=== PATIENT | male | born 1975 ===

== ENCOUNTER 2020-03-02 02:58 | Inpatient (IN) | payer OTHER ==
[2020-03-02] MEDS ORDERED: ACETAMINOPHEN 325 MG TAB PO ONE (03:05)
[2020-03-02] MEDS ORDERED: SODIUM CHLORIDE 0.9% 1000 ML 1,000 ML IV ONE ×2 (03:59→05:23)
[2020-03-02] MEDS ORDERED: IBUPROFEN 800 MG TAB PO ONE (03:59)
[2020-03-02] MEDS ORDERED: ONDANSETRON 4 MG/2 ML INJ IV ONE (04:00)
[2020-03-02] MEDS ORDERED: FAMOTIDINE 20 MG/2 ML INJ IV ONE (04:00)
[2020-03-02 04:46] LABS: Basophils % (Auto) 0.3 % (0.0-1.8); Eosinophils % (Auto) 0.1 % (0.0-4.3); Hematocrit 41.7 % (35.5-45.6); Hemoglobin 14.4 gm/dl (11.8-15.2); Lymphocytes % (Auto) 35.9 % (13.4-35.0); Mean Corpuscular HGB Conc 35 % (32-34); Mean Corpuscular Volume 88 fl (84-94); Monocytes # (Auto) 0.2 K/mm3 (0.0-0.8); Monocytes % (Auto) 7.7 % (0.0-7.3); Platelet Count 193 K/mm3 (140-440); Red Blood Count 4.71 M/mm3 (3.65-5.03); Red Cell Distribution Width 14.1 % (13.2-15.2)
--- NOTE | 2020-03-02 04:52 | XRay Report ---
CHEST 1 VIEW 4:24 AM INDICATION / CLINICAL INFORMATION: Cough, fever and lower back pain. COMPARISON: None available. FINDINGS: SUPPORT DEVICES: None. HEART / MEDIASTINUM: The heart size and pulmonary vasculature are normal. LUNGS / PLEURA: There is mild groundglass parenchymal disease in the right mid to lower lung. The lef t lung is clear. No pleural effusion. No pneumothorax. ADDITIONAL FINDINGS: No significant additional findings. IMPRESSION: 1. Patchy groundglass parenchymal disease in the right mid to lower lung is likely inflammatory. Bact erial pneumonia as well as atypical causes of pneumonia, including viral pneumonia, should be conside red. Signer Name: Stephen Roach MD Signed: 03/02/2020 4:47 AM Workstation Name: [email or web address]
[2020-03-02 05:09] LABS: Alanine Aminotransferase 30 units/L (7-56); Albumin 4.1 g/dL (3.9-5); BUN/Creatinine Ratio 9; Blood Urea Nitrogen 9 mg/dL (9-20); Calcium 8.3 mg/dL (8.4-10.2); Hemolysis Index 28
[2020-03-02 05:19] LABS: Bilirubin,Urine NEG (Negative); Blood,Urine NEG (Negative); Color,Urine Yellow (Yellow); Mucus,Urine FEW /HPF; Protein,Urine <15 mg/dL mg/dL (Negative); Urobilinogen,Urine < 2.0 mg/dL (<2.0)
[2020-03-02] MEDS ORDERED: cefTRIAXone/NS 1 GM/50 ML 1 GM/50 ML BAG IV ONE (05:23)
[2020-03-02] MEDS ORDERED: AZITHROMYCIN 500 MG in SODIUM CHLORIDE 0.9% 250ML 250 ML IV ONE ×2 (05:23→05:58)
[2020-03-02] MEDS ORDERED: dexAMETHasone 20 MG/5 ML VIAL IV ONE (05:30)
[2020-03-02] MEDS ORDERED: AZITHROMYCIN 1 GM ORAL PWDR PACKET PO ONE (05:44)
[2020-03-02] MEDS ORDERED: IPRATROPIUM/ALBUTEROL SULFATE 3 ML AMPUL.NEB IH ONE (05:59)
--- NOTE | 2020-03-02 05:59 | Emergency Department Report ---
ED General Adult HPI - General Chief complaint: Fever Stated complaint: COUGH, FEVER, DECREASED APPETITE Source: patient Mode of arrival: Ambulatory Limitations: No Limitations - History of Present Illness Initial comments: Patient is a 45-year-old -Maldivian male with no past medical history presents to the ED with complaint of acute onset persistent nasal and sinus sophia estion, frontal sinus pressure and headache, severe sore throat, persistent dry cough, generalized weakness, fatigue, diffuse body aches and pains, low back pain and lack of appetite and intermittent fever up to 103 F with chills for the last 3 days. Patient states that he has not been able to sleep because of worsening symptoms. Patient states that no one else at home is had similar symptoms. Patient denies dizziness, syncope, chest pain, abdominal pain, nausea, vomiting, diarrhea, dizziness, dysuria, urinary frequency and urgency, hematuria, change in vision or hematemesis. MD Complaint: Low back pain, diffuse body aches and pains, fever, chills, cough and nasal -: Sudden, days(s) Location: head, chest Radiation: non-radiation Severity scale (0 -10): 7 Quality: aching, sharp Consistency: constant Improves with: none Worsens with: none Associated Symptoms: denies other symptoms, cough, diaphoresis, fever/chills, headaches, loss of appetite, malaise, shortness of breath. denies: confusion, chest pain, nausea/vomiting, rash, seizure, syncope, weakness, other Treatments Prior to Arrival: none - Related Data Allergies Allergy/AdvReac Type Severity Reaction Status Date / Time No Known Allergies Allergy Verified 03/02/20 03:04 ED Review of Systems ROS: Stated complaint: COUGH, FEVER, DECREASED APPETITE Other details as noted in HPI Constitutional: chills, fever, malaise, weakness Eyes: denies: eye pain, eye discharge, vision change ENT: denies: ear pain, throat pain Respiratory: cough, shortness of breath. denies: wheezing Cardiovascular: denies: chest pain, palpitations Endocrine: no symptoms reported. denies: excessive sweating, flushing, intolerance to cold, intolerance to heat, increased hunger, increased urine, unexplained weight gain Gastrointestinal: denies: abdominal pain, nausea, vomiting, diarrhea, constipation, hematemesis, hematochezia Genitourinary: denies: urgency, dysuria, frequency, testicular pain Musculoskeletal: back pain, arthralgia, myalgia. denies: joint swelling Skin: denies: rash, lesions Neurological: headache. denies: weakness, paresthesias Psychiatric: denies: anxiety, depression Hematological/Lymphatic: denies: easy bleeding, easy bruising ED Past Medical Hx - Past Medical History Previous Medical History?: No - Surgical History Past Surgical History?: No - Social History Smoking Status: Never Smoker Substance Use Type: Alcohol ED Physical Exam - General Limitations: No Limitations General appearance: alert, in no apparent distress, lethargic - Head Head exam: Present: atraumatic, normocephalic, normal inspection - Eye Eye exam: Present: normal appearance, PERRL, EOMI Pupils: Present: normal accommodation - ENT ENT exam: Present: mucous membranes moist, TM's normal bilaterally, normal external ear exam, other (Grossly congested nasal passages, palpable frontal and maxillary sinus tenderness, erythematous oropharynx and tonsils) - Neck Neck exam: Present: normal inspection, full ROM. Absent: lymphadenopathy - Respiratory Respiratory exam: Present: normal lung sounds bilaterally. Absent: respiratory distress, wheezes, rales, rhonchi, chest wall tenderness, accessory muscle use, decreased breath sounds - Cardiovascular Cardiovascular Exam: Present: regular rate, normal rhythm, normal heart sounds. Absent: systolic murmur, diastolic murmur, rubs, gallop - GI/Abdominal GI/Abdominal exam: Present: soft, normal bowel sounds. Absent: tenderness, guarding, hyperactive bowel sounds, organomegaly - Extremities Exam Extremities exam: Present: normal inspection, full ROM, normal capillary refill - Back Exam Back exam: Present: normal inspection, full ROM. Absent: tenderness, CVA tend erness (R), muscle spasm, vertebral tenderness - Neurological Exam Neurological exam: Present: alert, oriented X3, CN II-XII intact, normal gait, reflexes normal - Psychiatric Psychiatric exam: Present: normal affect, normal mood - Skin Skin exam: Present: warm, dry, intact, normal color. Absent: rash ED Course Vital Signs 03/02/20 03:02 Temperature 103.0 F H Pulse Rate 74 Respiratory 18 Rate Blood Pressure 137/81 O2 Sat by Pulse 95 Oximetry ED Medical Decision Making - Lab Data Result diagrams: 03/02/20 04:38 03/02/20 04:38 - Radiology Data Radiology results: report reviewed Findings [facility] [address] [place] [address] XRay Report Signed Patient: CORY AQUINO#: [id number] : 1975 Acct:[id number] Age/Sex: 45 / M ADM Date: 03/02/20 Loc: ED Attending Dr: Ordering Physician: CARMEN VALLECILLO Date of Service: 03/02/20 Procedure(s): XR chest 1V ap Accession Number(s): [id number] cc: CARMEN VALLECILLO Fluoro Time In Minutes: CHEST 1 VIEW 4:24 AM INDICATION / CLINICAL INFORMATION: Cough, fever and lower back pain. COMPARISON: None available. FINDINGS: SUPPORT DEVICES: None. HEART / MEDIASTINUM: The heart size and pulmonary vasculature are normal. LUNGS / PLEURA: There is mild groundglass parenchymal disease in the right mid to lower lung. The left lung is clear. No pleural effusion. No pneumothorax. ADDITIONAL FINDINGS: No significant additional findings. IMPRESSION: 1. Patchy groundglass parenchymal disease in the right mid to lower lung is likely inflammatory. Bacterial pneumonia as well as atypical causes of pneumonia, including viral pneumonia, should be considered. Signer Name: Stephen Roach MD Signed: 03/02/2020 4:47 AM Workstation Name: [id number] Transcribed By: RT Dictated By: Stephen Roach MD Electronically Authenticated By: Stephen Roach MD Signed Date/Time: 03/02/20446 DD/ 5 TD/TT: - Medical Decision Making This is a 45-year-old -Maldivian male with no past medical history presents to the ED with complaint of acute onset persistent nasal and sinus co ngestion, frontal sinus pressure and headache, severe sore throat, persistent dry cough, generalized weakness, fatigue, diffuse body aches and pains, low back pain and lack of appetite and intermittent fever up to 103 F with chills for the last 3 days. Patient states that he has not been able to sleep because of worsening symptoms. Patient states that no one else at home is had similar symptoms. In the ED, patient is alert and oriented x3 and is not in distress but febrile in triage. Patient however appears diaphoretic and lethargic during physical exam. Patient was treated for fever. Chest x-ray shows a patchy groundglass parenchymal disease in the right mid to lower lung is likely i nflammatory. Bacterial pneumonia as well as atypical causes of pneumonia, including viral pneumonia, should be considered. Lab test results were reviewed and showed acute leukopenia of 2.8, LDH of 417, CRP of 3.90, d-dimer of 366.10. The other inflammatory markers are pending. Patient received antipyretics in the ED, was also given normal saline 1 L IV bolus x1, patient also received azithromycin 500 mg IV x1 and Rocephin 1 g IV x1. Patient also received Decadron 10 mg IV x1 in the ED, was also treated with DuoNeb in the ED. Patient's case was discussed with the ED attending physician Dr. Reid who advised the patient be admitted to the hospital pending COVID-19 test results. I therefore discussed the patient's case with the hospitalist physician on-call Dr. Parish who advised the patient be bridged for admission and he shall pass on the admission to the incoming hospitalist physician at shift change at 0700 hrs. - Differential Diagnosis Pneumonia; Covid-19; Strep pharyngitis; UTI; Bronchitis; Sinusitis; URI Critical care attestation.: If time is entered above; I have spent that time in minutes in the direct care of this critically ill patient, excluding procedure time. ED Disposition Clinical Impression: Shortness of breath, Fever and chills, Acute upper respiratory infection, S uspected COVID-19 virus infection Community acquired pneumonia Qualifiers: Laterality: right Lung location: lower lobe of lung Qualified Code(s): J18.9 - Pneumonia, unspecified organism Disposition: OP ADMIT IP TO THIS HOSP Is pt being admited?: No Does the pt Need Aspirin: No Condition: Stable Instructions: Bacterial Pneumonia (ED), Community-acquired Pneumonia (ED), COVID-19, Fever in Adults (ED) Referrals: PRIMARY CARE, [Primary Care Provider] - 3-5 Days Time of Disposition: 06:03 Print Language: YAKUT
[2020-03-02] MEDS ORDERED: LACTATED RINGERS 1,000 ML IV ONE (06:16)
--- NOTE | 2020-03-02 08:30 | History and Physical Report ---
History of Present Illness Date of examination: 03/02/20 Date of admission: 03/02/20 07:31 Chief complaint: Cough fever loss of appetite History of present illness: 45-year-old -Tongan male with no past medical history, not on any medications presents to the ED with complaint upper respiratory symptoms , cough fever and loss of appetite .in ED his peak temperature was 103 F associated with some dry cough and generalized body pains intermittent for the last 3 days. Patient denies contact with sick person, denies nausea vomiting or abdominal pain, denies headache dizziness weakness or numbness No urinary symptoms Initial evaluation in the emergency room chest x-ray patchy groundglass parenchymal disease inflammatory versus bilateral pneumonia Chest CTA; negative for PE, patchy multifocal airspace disease, atypical infectious versus inflammatory process Suspicion for COVID-19, bunn PCR test was requested, patient was placed on isolation Past History Past Medical History: No medical history Past Surgical History: No surgical history Social history: denies: smoking, alcohol abuse, prescription drug abuse Family history: no significant family history Medications and Allergies Allergies Allergy/AdvReac Type Severity Reaction Status Date / Time No Known Allergies Allergy Verified 03/02/20 03:04 Home Medications Medication Instructions Recorded Confirmed Last Taken Type No Known Home Medications [No 03/02/20 03/02/20 Unknown History Reported Home Medications] Review of Systems Constitutional: fever, chills, anorexia, weakness, no weight loss, no weight gain Ears, nose, mouth and throat: nasal congestion, nasal discharge Cardiovascular: no chest pain, no orthopnea, no palpitations Respiratory: cough, no hemoptysis, no shortness of breath Gastrointestinal: no abdominal pain, no nausea, no vomiting Genitourinary Male: no dysuria, no hematuria Musculoskeletal: myalgias, no neck pain, no arthritis Integumentary: no rash, no lesions Neurological: no weakness, no numbness, no seizures Psychiatric: no anxiety, no depression Endocrine: no cold intolerance, no heat intolerance, no polydipsia, no polyuria Hematologic/Lymphatic: no easy bruising, no easy bleeding Allergic/Immunologic: no urticaria, no allergic rhinitis Exam - Constitutional Vitals: Temp Pulse Resp BP Pulse Ox 103.0 F H 74 20 137/81 98 03/02/20 03:02 03/02/20 03:02 03/02/20 08:10 03/02/20 03:02 03/02/20 08:10 General appearance: Present: no acute distress, well-nourished - EENT Eyes: Present: PERRL, EOM intact - Neck Neck: Present: supple, normal ROM - Respiratory Respiratory effort: normal Respiratory: bilateral: diminished, rhonchi, negative: rales - Cardiovascular Rhythm: regular Heart Sounds: Present: S1 & S2 - Extremities Extremities: no ischemia, No edema - Abdominal General gastrointestinal: Present: soft, non-tender, non-distended, normal bowel sounds - Integumentary Integumentary: Present: clear, warm - Musculoskeletal Musculoskeletal: strength equal bilaterally - Psychiatric Psychiatric: appropriate mood/affect - Neurologic Neurologic: CNII-XII intact, moves all extremities HEART Score - HEART Score Troponin: Troponin T < 0.010 ng/mL (0.00-0.029) 03/02/20 06:42 Results - Labs CBC & Chem 7: 03/02/20 04:38 03/02/20 04:38 Labs: Abnormal lab results 03/02/20 03/02/20 03/02/20 Range/Units 04:38 04:38 04:38 WBC 2.8 L (4.5-11.0) K/mm3 MCHC 35 H (32-34) % Lymph % (Auto) 35.9 H (13.4-35.0) % [place] % (Auto) 7.7 H (0.0-7.3) % Lymph # 1.0 L (1.2-5.4) K/mm3 Seg Neutrophils # 1.6 L (1.8-7.7) K/mm3 D-Dimer 366.10 H (0-234) ng/mlDDU Sodium 136 L (137-145) mmol/L Glucose 116 H (75-100) mg/dL Calcium 8.3 L (8.4-10.2) mg/dL AST 46 H (5-40) units/L Lactate Dehydrogenase 417 H (91-180) units/L C-Reactive Protein 3.90 H (0.00-1.30) mg/dL Assessment and Plan - Patient Problems (1) Suspected COVID-19 virus infection Current Visit: Yes Status: Acute Plan to address problem: Droplet and contact isolation, PPE protocol Inflammatory markers, ID consult IV fluids, antipyretics and supportive care (2) Atypical pneumonia Current Visit: Yes Status: Acute Plan to address problem: IV Rocephin, Zithromax, blood cultures Cough medicine as needed, supportive care (3) Febrile illness Current Visit: Yes Status: Acute Plan to address problem: Secondary to pneumonia/possible COVID Antibiotics, empiric antibiotics, supportive care (4) Leukopenia Current Visit: Yes Status: Acute Plan to address problem: Probably due to viral etiology, closely monitor (5) Obesity (BMI 30.0-34.9) Current Visit: Yes Status: Acute (6) Acute upper respiratory infection Current Visit: Yes Status: Acute Plan to address problem: Symptomatic management, antipyretics, decongestants supportive care, (7) DVT prophylaxis Current Visit: Yes Status: Acute Plan to address problem: Lovenox We will closely monitor the patient and adjust management as needed Plan of care reviewed with the patient and his nurse I spent total 50 minutes coordinating this admission
[2020-03-02] MEDS ORDERED: AZITHROMYCIN 500 MG in SODIUM CHLORIDE 0.9% 250ML 250 ML IV SCH (10:00)
--- NOTE | 2020-03-02 10:00 | Cat Scan Report ---
CTA chest with contrast INDICATION : MAIN. Acute cough and fever TECHNIQUE: Axial imaging performed through the chest, with contrast bolus timing set to maximize opa cification of the pulmonary arteries. 3-plane MIP reformatted images were obtained. All CT scans at this location are performed using CT dose reduction for ALARA by means of automated exposure control. 100 mL of intravenous contrast administered. COMPARISON: Chest x-ray from today FINDINGS: Bolus: Contrast bolus timing is adequate. PTE: No filling defect is present to suggest PTE. Mediastinum: Heart and great vessels appear normal. There are several shoddy mediastinal lymph node s. Lungs: There is patchy multifocal airspace disease in the lungs which is greatest in the lung bases and demonstrates a primarily peripheral distribution. No pleural effusion. Upper abdomen: Limited imaging of the upper abdomen shows nothing acute. Bones: Degenerative changes in the spine with nothing acute. IMPRESSION: 1. Negative for PTE. 2. Patchy multifocal airspace disease with a predominantly peripheral distribution and several shoddy mediastinal lymph nodes which may simple be reactive in this situation. Differential considerations would include an atypical infectious/inflammatory process such as a viral etiology. Consider appropri ate testing. Signer Name: Kurtis Rodirguez MD Signed: 03/02/2020 9:55 AM Workstation Name: [email or web address]
--- NOTE | 2020-03-02 20:41 | Event Note ---
Date: 03/02/20 Nurse reports that patient has mild asymptomatic bradycardia with heart rate in 40s and 50s Zithromax discontinued, we we will closely monitor, consult cardiology if needed And of care discussed with the patient and her his nurse
[2020-03-03] MEDS ORDERED: cefTRIAXone/NS 2 GM/100 ML 2 GM/100 ML BAG IV SCH (06:00)
[2020-03-03] MEDS ORDERED: AZITHROMYCIN 250 MG TAB PO SCH (10:00)
[2020-03-03] MEDS ORDERED: cefTRIAXone/NS 1 GM/50 ML 1 GM/50 ML BAG IV SCH (10:00)
--- NOTE | 2020-03-03 10:21 | Progress Note ---
Assessment and Plan Assessment and plan: --positive COVID-19 virus infection Current Visit: Yes Status: Acute Droplet and contact isolation, PPE protocol Inflammatory markers very low, ID following Check o2 sats,IV fluids, antipyretics and supportive care -- Atypical pneumonia Current Visit: Yes Status: Acute DC IV Rocephin, Zithromax, Cough medicine as needed, supportive care --Febrile illness Current Visit: Yes Status: Acute Secondary to COVID19 supportive care -- Leukopenia Current Visit: Yes Status: Acute due to viral etiology, closely monitor -- Acute upper respiratory infection Current Visit: Yes Status: Acute Viral , antipyretics, decongestants as needed --DVT prophylaxis Current Visit: Yes Status: Acute Lovenox Disposition :Check o2 sats, May dc home am if stable Follow ID evaluation and recommendations History Interval history: Patient seen and examined in his room this morning Isolation precautions, PPE protocols followed Patient complains of generalized weakness, some chest pain Indigestion, and insomnia Vital signs reviewed Hospitalist Physical - Constitutional Vitals: Temp Pulse Resp BP Pulse Ox 99.5 F 57 L 18 129/60 97 03/03/20 04:54 03/03/20 04:54 03/03/20 04:54 03/03/20 04:54 03/03/20 04:54 General appearance: Present: mild distress, well-nourished - EENT Eyes: Present: PERRL, EOM intact - Neck Neck: Present: supple, normal ROM - Respiratory Respiratory effort: normal Respiratory: bilateral: diminished, rhonchi, negative: rales, wheezing - Cardiovascular Rhythm: regular Heart Sounds: Present: S1 & S2 - Extremities Extremities: no ischemia, No edema - Abdominal General gastrointestinal: soft, non-tender, non-distended, normal bowel sounds - Integumentary Integumentary: Present: clear, warm - Psychiatric Psychiatric: appropriate mood/affect, cooperative - Neurologic Neurologic: moves all extremities HEART Score - HEART Score Troponin: Troponin T < 0.010 ng/mL (0.00-0.029) 03/02/20 06:42 Results - Labs CBC & Chem 7: 03/02/20 04:38 03/02/20 04:38 Labs: Laboratory Last Values WBC 2.8 K/mm3 (4.5-11.0) L 03/02/20 04:38 RBC 4.71 M/mm3 (3.65-5.03) 03/02/20 04:38 Hgb 14.4 gm/dl (11.8-15.2) 03/02/20 04:38 Hct 41.7 % (35.5-45.6) 03/02/20 04:38 MCV 88 fl (84-94) 03/02/20 04:38 MCH 31 pg (28-32) 03/02/20 04:38 MCHC 35 % (32-34) H 03/02/20 04:38 RDW 14.1 % (13.2-15.2) 03/02/20 04:38 Plt Count 193 K/mm3 (140-440) 03/02/20 04:38 Lymph % (Auto) 35.9 % (13.4-35.0) H 03/02/20 04:38 [place] % (Auto) 7.7 % (0.0-7.3) H 03/02/20 04:38 Eos % (Auto) 0.1 % (0.0-4.3) 03/02/20 04:38 Baso % (Auto) 0.3 % (0.0-1.8) 03/02/20 04:38 Lymph # 1.0 K/mm3 (1.2-5.4) L 03/02/20 04:38 [place] # 0.2 K/mm3 (0.0-0.8) 03/02/20 04:38 Eos # 0.0 K/mm3 (0.0-0.4) 03/02/20 04:38 Baso # 0.0 K/mm3 (0.0-0.1) 03/02/20 04:38 Seg Neutrophils % 56.0 % (40.0-70.0) 03/02/20 04:38 Seg Neutrophils # 1.6 K/mm3 (1.8-7.7) L 03/02/20 04:38 D-Dimer 366.10 ng/mlDDU (0-234) H 03/02/20 04:38 Sodium 136 mmol/L (137-145) L 03/02/20 04:38 Potassium 4.0 mmol/L (3.6-5.0) 03/02/20 04:38 Chloride 101.3 mmol/L (98-107) 03/02/20 04:38 Carbon Dioxide 22 mmol/L (22-30) 03/02/20 04:38 Anion Gap 17 mmol/L 03/02/20 04:38 BUN 9 mg/dL (9-20) 03/02/20 04:38 Creatinine 1.0 mg/dL (0.8-1.5) 03/02/20 04:38 Estimated GFR > 60 ml/min 03/02/20 04:38 BUN/Creatinine Ratio 9 % 03/02/20 04:38 Glucose 116 mg/dL (75-100) H 03/02/20 04:38 Lactic Acid 1.60 mmol/L (0.7-2.0) 03/02/20 06:42 Calcium 8.3 mg/dL (8.4-10.2) L 03/02/20 04:38 Ferritin 603.9 ng/mL (13.0-400.0) H 03/02/20 04:38 Total Bilirubin 0.30 mg/dL (0.1-1.2) 03/02/20 04:38 AST 46 units/L (5-40) H 03/02/20 04:38 ALT 30 units/L (7-56) 03/02/20 04:38 Alkaline Phosphatase 55 units/L (35-129) 03/02/20 04:38 Lactate Dehydrogenase 417 units/L (91-180) H 03/02/20 04:38 Troponin T < 0.010 ng/mL (0.00-0.029) 03/02/20 06:42 C-Reactive Protein 3.90 mg/dL (0.00-1.30) H 03/02/20 04:38 Total Protein 7.9 g/dL (6.3-8.2) 03/02/20 04:38 Albumin 4.1 g/dL (3.9-5) 03/02/20 04:38 Albumin/Globulin Ratio 1.1 % 03/02/20 04:38 Procalcitonin 0.07 ng/mL (<0.15) 03/02/20 04:38 Urine Color Yellow (Yellow) 03/02/20 05:04 Urine Turbidity Clear (Clear) 03/02/20 05:04 Urine pH 5.0 (5.0-7.0) 03/02/20 05:04 Ur Specific [place] 1.019 (1.003-1.030) 03/02/20 05:04 Urine Protein <15 mg/dl mg/dL (Negative) 03/02/20 05:04 Urine Glucose (UA) Neg mg/dL (Negative) 03/02/20 05:04 Urine Ketones Neg mg/dL (Negative) 03/02/20 05:04 Urine Blood Neg (Negative) 03/02/20 05:04 Urine Nitrite Neg (Negative) 03/02/20 05:04 Urine Bilirubin Neg (Negative) 03/02/20 05:04 Urine Urobilinogen < 2.0 mg/dL (<2.0) 03/02/20 05:04 Ur Leukocyte Esterase Neg (Negative) 03/02/20 05:04 Urine WBC (Auto) 2.0 /HPF (0.0-6.0) 03/02/20 05:04 Urine RBC (Auto) 3.0 /HPF (0.0-6.0) 03/02/20 05:04 U Epithel Cells (Auto) < 1.0 /HPF (0-13.0) 03/02/20 05:04 Urine Mucus Few /HPF 03/02/20 05:04 Coronavirus (PCR) Positive (Negative) A 03/02/20 Unknown Influenza A (Rapid) Negative (Negative) 03/02/20 04:20 Influenza B (Rapid) Negative (Negative) 03/02/20 04:20 Group A Strep Rapid Negative (Negative) 03/02/20 04:20 Microbiology: Microbiology 03/02/20 04:20 Throat Group A Strep Throat Culture - Preliminary Martinez/IV: Voiding Method Toilet IV Catheter Type [Right INT / Saline Lock Antecubital] Active Medications - Current Medications Current Medications: Generic Name Dose Route Start Last Admin Trade Name Freq PRN Reason Stop Dose Admin Acetaminophen 650 mg 03/02/20 08:31 Tylenol PO Q4H PRN Pain, Mild (1-3) Sodium Chloride 1,000 mls @ 100 mls/hr 03/02/20 08:45 Nacl 0.9% 1000 Ml IV DIRECT KAI Ceftriaxone Sodium 2 gm in 100 mls @ 200 mls/hr 03/03/20 06:00 03/03/20 06:54 Rocephin/Ns 2 Gm/100 Ml IV 200 mls/hr Q24HR KAI Administration
--- NOTE | 2020-03-03 16:00 | Consultation ---
History of Present Illness - Reason for Consult Consult date: 03/03/20 COVID Requesting physician: MARILU WALSH - History of Present Illness The patient is a 45-year-old male with no significant past medical history admitted to the hospital with cough, fever and loss of appetite along with dry cough and body aches. He tested positive for COVID. CTA chest negative for PE, showed patchy multifocal airspace disease. Patient however is on room air Review of Systems: reviewed in the chart, unable to obtain directly due to PPE shortage and preservation Past History Past Medical History: No medical history Past Surgical History: No surgical history Social history: denies: smoking, alcohol abuse, prescription drug abuse Family history: no significant family history Medications and Allergies Allergies Allergy/AdvReac Type Severity Reaction Status Date / Time No Known Allergies Allergy Verified 03/02/20 03:04 Home Medications Medication Instructions Recorded Confirmed Last Taken Type No Known Home Medications [No 03/02/20 03/02/20 Unknown History Reported Home Medications] Active Meds: Active Medications Acetaminophen (Tylenol) 650 mg PO Q4H PRN PRN Reason: Pain, Mild (1-3) Sodium Chloride (Nacl 0.9% 1000 Ml) 1,000 mls @ 100 mls/hr IV DIRECT KAI Ceftriaxone Sodium (Rocephin/Ns 2 Gm/100 Ml) 2 gm in 100 mls @ 200 mls/hr IV Q24HR KAI Last Admin: 03/03/20 06:54 Dose: 200 mls/hr Documented by: Pantoprazole Sodium (Protonix) 40 mg IV QDAY KAI Physical Examination - Physical Exam Narrative exam: Physical Exam (reviewed in chart due to PPE conservation) Constitutional: limited due to PPE conservation strategy Head, Ears, Nose: limited due to PPE conservation strategy Eyes: limited due to PPE conservation strategy Neck: limited due to PPE conservation strategy Oral: limited due to PPE conservation strategy Cardiovascular: limited due to PPE conservation strategy Respiratory: limited due to PPE conservation strategy GI: limited due to PPE conservation strategy Musculoskeletal: limited due to PPE conservation strategy Skin: limited due to PPE conservation strategy Hem/Lymphatic: limited due to PPE conservation strategy Psych: limited due to PPE conservation strategy Neurological: limited due to PPE conservation strategy - Constitutional Vitals: Vital Signs Temp Pulse Resp BP Pulse Ox 99.5 F 57 L 18 129/60 97 03/03/20 04:54 03/03/20 04:54 03/03/20 04:54 03/03/20 04:54 03/03/20 04:54 Temperature -Last 24 Hours Temperature 99.5 F Temperature 98.2 F Temperature 98.4 F Results - Labs CBC & Chem 7: 03/02/20 04:38 03/02/20 04:38 Labs: Abnormal lab results 03/02/20 Range/Units 04:38 Ferritin 603.9 H (13.0-400.0) ng/mL Assessment and Plan Cultures: Coronavirus PCR: Positive A/P: 45-year-old male with no significant past medical history admitted to the hospital with cough, fever and loss of appetite along with dry cough and body aches: #Bilateral pneumonia: Secondary to COVID. Patient is on room air. No indication for steroids or Remdesivir. Recs: Markers mildly elevated. Patient has no other significant risk factors for critical disease. Remains on room air. No indication for steroids or Remdesivir Could consider discharge if ambulatory sats are okay Procal is low, abx not needed Kenyon Ortega MD, FACP [facility] C: [phone] O: [phone] F: [phone]
[2020-03-03] MEDS: ACETAMINOPHEN 325 MG TAB PO PRN (18:38)
[2020-03-04] MEDS: SODIUM CHLORIDE 0.9% 1000 ML 1,000 ML IV SCH ×2 (05:07→18:30)
[2020-03-04] MEDS: ACETAMINOPHEN 325 MG TAB PO PRN (05:08)
[2020-03-04] MEDS ORDERED: PANTOPRAZOLE 40 MG INJ IV SCH (10:00)
--- NOTE | 2020-03-04 19:25 | Progress Note ---
Assessment and Plan Day # 3 Febrile this Am 101.4 SOB on ambulation present Assessment and Plan Assessment and plan: --positive COVID-19 virus infection Current Visit: Yes Status: Acute Droplet and contact isolation, PPE protocol Inflammatory markers very low, ID following Check o2 sats,IV fluids, antipyretics and supportive care -- Atypical pneumonia Current Visit: Yes Status: Acute DC IV Rocephin, Zithromax, Cough medicine as needed, supportive care --Febrile illness Current Visit: Yes Status: Acute Secondary to COVID19 supportive care -- Leukopenia Current Visit: Yes Status: Acute due to viral etiology, closely monitor -- Acute upper respiratory infection Current Visit: Yes Status: Acute Viral , antipyretics, decongestants as needed --DVT prophylaxis Current Visit: Yes Status: Acute Lovenox Disposition :Check o2 sats, May dc home am if stable Follow ID evaluation and recommendations Subjective Date of service: 03/04/20 Principal diagnosis: Covid pneumonia Interval history: Day#3 Symptomatically better 45-year-old -[place] male with no past medical history, not on any m edications presents to the ED with complaint upper respiratory symptoms , cough fever and loss of appetite .in ED his peak temperature was 103 F associated with some dry cough and generalized body pains intermittent for the last 3 days. Patient denies contact with sick person, denies nausea vomiting or abdominal pain, denies headache dizziness weakness or numbness No urinary symptoms Initial evaluation in the emergency room chest x-ray patchy groundglass parenchymal disease inflammatory versus bilateral pneumonia Chest CTA; negative for PE, patchy multifocal airspace disease, atypical infecti ous versus inflammatory process Suspicion for COVID-19, bunn PCR test was requested, patient was placed on isolation Objective - Constitutional Vitals: Vital Signs - 12hr 03/04/20 12:08 Temperature 99.0 F Pulse Rate 45 L Respiratory 20 Rate Blood Pressure 109/64 O2 Sat by Pulse 96 Oximetry General appearance: Present: no acute distress, well-nourished - EENT Eyes: PERRL, EOM intact ENT: hearing intact, clear oral mucosa Ears: bilateral: normal - Neck Neck: supple, normal ROM - Respiratory Respiratory effort: normal Respiratory: bilateral: CTA - Breasts Breasts: normal - Cardiovascular Heart rate: 78 Rhythm: regular Heart Sounds: Present: S1 & S2. Absent: gallop, rub Extremities: pulses intact, No edema, normal color, Full ROM - Gastrointestinal General gastrointestinal: Present: soft, non-tender, non-distended, normal bowel sounds - Genitourinary Male genitourinary: normal - Integumentary Integumentary: clear, warm, dry - Musculoskeletal Musculoskeletal: 1, strength equal bilaterally - Neurologic Neurologic: moves all extremities - Psychiatric Psychiatric: memory intact, appropriate mood/affect, intact judgment & insight - Labs CBC & Chem 7: 03/02/20 04:38 03/02/20 04:38 HEART Score - HEART Score Troponin: Troponin T < 0.010 ng/mL (0.00-0.029) 03/02/20 06:42
[2020-03-05] MEDS ORDERED: PANTOPRAZOLE 40 MG TAB PO SCH (10:00)
[2020-03-05] MEDS: SODIUM CHLORIDE 0.9% 1000 ML 1,000 ML IV SCH (16:17)
[2020-03-05] MEDS: ACETAMINOPHEN 325 MG TAB PO PRN (17:45)
[2020-03-05 18:31] VITALS: BP 123/70
--- NOTE | 2020-03-05 20:51 | Discharge Summary ---
Providers - Providers Date of Admission: 03/02/20 07:31 Date of discharge: 03/05/20 Attending physician: CELIA HAMILTON 03/02/20 17:55 Consult to Physician [CONS] Routine Comment: Consulting Provider: MARIA A FONG Physician Instructions: Reason For Exam: Positive COVID Primary care physician: CHURN TENDER Hospitalization Condition: Stable Hospital course: Day # 3 Febrile this Am 101.4 SOB on ambulation present Day #4 Oxygen saturations are normal 97% Ambulatory sats are normal Assessment and Plan --positive COVID-19 virus infection Current Visit: Yes Status: Acute Droplet and contact isolation, PPE protocol Inflammatory markers very low, ID following Check o2 sats,IV fluids, antipyretics and supportive care ID recommendations and consult "45-year-old male with no significant past medical history admitted to the hospital with cough, fever and loss of appetite along with dry cough and body aches: #Bilateral pneumonia: Secondary to COVID. Patient is on room air. No indication for steroids or Remdesivir. Recs: Markers mildly elevated. Patient has no other significant risk factors for critical disease. Remains on room air. No indication for steroids or Remde sivir Could consider discharge if ambulatory sats are okay Procal is low, abx not needed" Ambulatory sats are normal Advised to isolate himself for 2 to 3 weeks Wear mask at home too Sleep in a separate bedroom and isolate himself -- Atypical pneumonia Current Visit: Yes Status: Acute DC IV Rocephin, Zithromax, Cough medicine as needed, supportive care --Febrile illness Current Visit: Yes Status: Acute Secondary to COVID19 supportive care Doing well -- Leukopenia Current Visit: Yes Status: Acute due to viral etiology, closely monitor Improved -- Acute upper respiratory infection Current Visit: Yes Status: Acute Viral , antipyretics, decongestants as needed Symptomatically better Disposition: DC-01 TO HOME OR SELFCARE - Discharge Diagnoses (1) Pneumonia due to COVID-19 virus Status: Acute Comment: Patient is stable No need for REMdesivir or Decadron Core Measure Documentation - Palliative Care Palliative Care/ Comfort Measures: Not Applicable - Core Measures Any of the following diagnoses?: none Exam - Constitutional Vitals: Temp Pulse Resp BP Pulse Ox 98.1 F 40 L 20 122/60 96 03/05/20 16:18 03/05/20 17:54 03/05/20 17:54 03/05/20 17:54 03/05/20 17:54 General appearance: Present: no acute distress, well-nourished - EENT Eyes: Present: PERRL ENT: hearing intact, clear oral mucosa - Neck Neck: Present: supple, normal ROM - Respiratory Respiratory effort: normal Respiratory: bilateral: CTA - Cardiovascular Heart rate: 88 Rhythm: regular Heart Sounds: Present: S1 & S2. Absent: rub, click - Extremities Extremities: no ischemia, pulses intact, pulses symmetrical, No edema Peripheral Pulses: within normal limits - Abdominal General gastrointestinal: Present: soft, non-tender, non-distended, normal bowel sounds Male genitourinary: Present: normal - Rectal Rectal Exam: deferred - Integumentary Integumentary: Present: clear, warm, dry - Musculoskeletal Musculoskeletal: gait normal, strength equal bilaterally - Psychiatric Psychiatric: appropriate mood/affect, intact judgment & insight - Neurologic Neurologic: CNII-XII intact, moves all extremities - Allied Health Allied health notes reviewed: nursing, case management Plan Activity: no restrictions Diet: regular Durable Medical Equipment Needed Upon Discharge: other (Self-isolation for 2 to 3 weeks) Follow up with: PRIMARY CAREMD [Primary Care Provider] - 3-5 Days MARIA A FONG MD [Staff Physician] - 7 Days
== END 2020-03-05 23:20 | disposition home or self-care (01) | DRG 177 ==
LOC: ED 02:58 → 3A 07:31
PROVIDERS: ADMIT Internal Medicine Geriatric Medicine; ATTEND Internal Medicine
DX: U07.1 COVID-19 (principal); J12.89 Other viral pneumonia; D72.819 Decreased white blood cell count, unspecified; Z79.899 Other long term (current) drug therapy
CPT/HCPCS: 36415; 71045; 71275; 80053; 81001; 82140; 82728; 83615; 84145; 84484; 85025; 85379; 86140; 87116; 87400; 87430; G0378; C9113; J0456; J0696; J1100; J2405; J7030; J7050; J7120; Q9967; U0003-CS